=== PATIENT | male | born 1970 | race Two or more races ===

== ENCOUNTER 2020-06-07 20:55 | Emergency (ER) | payer OTHER ==
[~2020-06-07] VITALS: Ht 175.3 cm; Wt 99.8 kg
[2020-06-07 21:01] VITALS: BP 0/0
[2020-06-07] MEDS ORDERED: EPINEPHrine HCL 1 MG/10 ML SYRG IV ONE (21:02)
[2020-06-07] MEDS ORDERED: SODIUM BICARBONATE 8.4% INJ 50ML SYRINGE IV ONE (21:02)
== END 2020-06-07 21:12 | disposition home or self-care (01) ==
LOC: EDBD 20:55 → ER 21:01
DX: I46.9 Cardiac arrest, cause unspecified (principal); I11.0 Hypertensive heart disease with heart failure; I50.9 Heart failure, unspecified; E11.9 Type 2 diabetes mellitus without complications
CPT/HCPCS: 31500; 92950; 99285; J0171